=== PATIENT | male | born 1980 | race Two or more races ===

== ENCOUNTER 2018-02-23 15:36 | Emergency (ER) | payer SELFPAY ==
[~2018-02-23] VITALS: Ht 157.5 cm; Wt 61.4 kg
[2018-02-23] MEDS ORDERED: CLOZ25TA4 PO (17:01)
[2018-02-23] MEDS ORDERED: LORazepam 2 MG TABLET PO ONE (18:00)
[2018-02-23 18:32] VITALS: BP 119/70
== END 2018-02-23 18:35 | disposition home or self-care (01) ==
LOC: EMS 15:36
DX: F20.9 Schizophrenia, unspecified (principal)